=== PATIENT | male | born 1930 | race Caucasian/White ===

== ENCOUNTER 2018-11-07 17:47 | Emergency (ER) | payer MEDICARE ==
--- OUTSIDE RECORDS SUMMARY | 2018-11-07 17:58 | XMS REPORT | Continuity of Care Document ---
:1930 External Reference #:[id number] Author Name Hoang Hernandez M.D. Address [address] [facility] [address] [place] [address] Care Team Providers Name Role Phone HCP/LW on file Primary Care Physician Unavailable Payers Type Date Identification Numbers Payment Provider Subscriber Effective: Policy Number: [id number] [facility] Marie Morse 2005 PayID: [id number] [address] [place] [address] Effective: 2010 Policy Number: [facility] Marie Morse [id number] PayID: [id number] [address] [place] [address] Advance Directives Description No Information Available Problems Date Description Provider Status Onset: 11/11/2006 Carotid artery occlusion Hoang Hernandez M.D. Active Onset: 11/11/2006 Disorder of lipid metabolism Hoang Hernandez M.D. Active Onset: 11/11/2006 Tobacco user Hoang Hernandez M.D. Active Onset: 01/28/2010 Benign essential hypertension Hoang Hernandez M.D. Active Onset: 08/16/2011 Abdominal aortic aneurysm without Hoang Hernandez M.D. Active rupture Onset: 08/16/2012 Impaired fasting glycaemia Hoang Hernandez M.D. Active Onset: 2016 Gastroesophageal reflux disease Hoang Hernandez M.D. Active Onset: 10/07/2015 Disorder of fatty acid metabolism Hoang Hernandez M.D. Active Onset: 10/07/2015 Dysthymic disorder Hoang Hernandez M.D. Active Onset: 10/07/2015 Essential hypertension Hoang Hernandez M.D. Active Family History Date Family Member(s) Problem(s) Comments General Alcoholism brother General Diabetes, Type II 1 brother, now General father, 2 brothers and 1 sister of cancers, unsure of kind : (age 45 Mother due to Typhoid Years) Number of Children None Number of Siblings Siblings: 6 Social History Type Date Description Comments Sex Unknown Marital Status Patient is ( of pneumonia 07/22/14) Employment Not currently working. 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 Tobacco Use Start: Unknown Current Cigarette Smoker Had smoked 2ppd for almost 40yrs. Smoking 1/2-1 ppd as of 01/02. Used Chantix in the past w/o quitting success but did cut down a lot. Tried Wellbutrin '; didn't help and caused insomnia, antsyness. 09/22/17: discussed stopping smoking, pt declined 08/12/14: Pt stated he will quit when he runs out of his current cigarette supply 04/04/15: continues to smoke ETOH Use Drinks Alcohol Occasionally ~1 beer/wk. Tobacco Use Start: Unknown Patient is a current smoker, smokes every day Smoking Status Reviewed: 09/22/17 Patient is a current smoker, smokes every day Allergies, Adverse Reactions, Alerts Description No Known Drug Allergies Medications Medication Date Status Form Strength Qnty SIG Indications Ordering Provider Areds 2 Active 1 po twice Unknown 016 daily Paroxetine Active Tablets 20mg 90tabs take one F34.1 Silcoff, HCL 014 tablet by dinah Bolton once M.DWesley daily for mood Aspirin Active Tablets 81mg 1 PO qd For I65.29 Silcoff, 007 Heart Edwina Bolton M.D. Prevention R94.31 Simvastatin 12/11/2006 Active Tablets 40mg 90tabs take one tablet E71.30 Silcoff, by mouth once Nanda Bolton daily for high cholesterol Atenolol 11/11/2006 Active Tablets 25mg 90tabs take one tablet I65.29 Silcoff, by mouth once Nanda Bolton daily as directed for high blood pressure I10 Shingrix 04/10/ Hx Suspension Rec 50mcg 2unit administer 2 Z23 Silcoff, 2018 - s doses as Nanda Bolton 10/07/ directed, per 2019 cdc guidelines Azithromycin 07/15/ Hx Tablets 250mg 6tabs 2 by mouth on 786.2 David, 2013 - day then 1 by Nanda Bolton 07/20/ mouth daily for 2013 4 more days Oxycodone-Acetamino 07/14/ Hx Tablets 5-325 40tab 1-2 every 6-8 Unknown phen 2014 - mg s hours as needed 07/31/ severe pain 2013 code d Acetaminophen 07/14/ Hx Capsules 500mg prn Unknown 2013 - 2013 PT For Balance And 08/20/ Hx please evaluate 781.2 Alexandracoluther, Fall Prevention 2012 - and treatHoang M.D. 07/14/ instruct in 2013 hep, modalities prn Omeprazole 08/20/ Hx Capsules DR 20mg 30cap Take One K21.9 David, 2012 - Capsule By Nanda Bolton 08/09/ Mouth Once 2015 Daily For Acid Reflux Omeprazole 09/07/ Hx Capsules DR 40mg 30cap 1 po qd for 536.8 David, 2009 - acid reflux Nanda Bolton 2010 Paroxetine HCL 01/30/ Hx Tablets 20mg 30tab 1/2 po qd for 1 300.4 David 2008 - week then 1 po Nanda Bolton 01/28/ qd 2009 Bupropion HCL SR 01/21/ Hx Tablets ER 12HR 150mg 60tab 1 po qam x3 300.4 David, 2008 - s days then 1 po Nanda Bolton 01/30/ bid; take last 2008 dose of the day by mid afternoon; start about 2wks before your quit date 305.1 Chantix 05/22/2008 - Hx Tablets 1mg 60tabs 1 po bid, to 305.1 Silcoff, 07/16/2008 start when jin Bolton are done M.DWesley with the starter kit Chantix Starter 04/24/2008 - Hx Misc [id number] 0.5MG qd X3 D 305.1 Brien Hernandez 05/22/2008 Then 0.5MG Hoang, bid X4 Days M.D. Then 1MG bid; Start This Medication 1WK Before Your Quit Date Wellbutrin XL 10/03/2007 - Hx Tablets ER 150mg 42Sample 1 pill every 305.1 Silcoff, 04/24/2008 24HR morning for 3 drew Bolton then 2 M.D. pills every morning Chantix 05/02/2007 - Hx Tablets 1mg 60tabs 1 PO bid 305.1 Silcoff, 05/17/2007 Nanda Bolton Chantix Starter 03/31/2007 - Hx Misc [id number] 0.5mg qd x3 D 305.1 Silcoff , Kit 05/02/2007 then 0.5mg Hoang, bid x4 days M.D. then 1mg bid; start this medication 1wk before your quit date Simvastatin 11/11/2006 - Hx Tablets 20mg 90tabs 1 po qd to 272.8 Silcoff, 12/11/2006 lower gurvinder Bolton M.D. Multivitamins - Hx 1 by mouth Unknown 04/03/2015 every day Immunizations CPT Code Status Date Vaccine Reaction Lot # [id number] Given 07/13/2017 Influenza Vaccine Split Virus Preservative Free Im Use 65955 Given 06/04/2015 Influenza Vaccine Split Virus Preservative Free Im Use 47071 Given 08/12/2014 Adacel or Boostrix, TDaP [id number] 67948 Given 08/12/2014 Prevnar 13 [id number] 16232 Given 08/12/2014 Influenza Vaccine Split Virus [id number] Preservative Free Im Use 83255 Given 08/20/2013 Flu, Split Virus 3Yrs [id number] 00636 Given 08/16/2012 Flu, Split Virus 3Yrs [id number] 49013 Given 08/16/2011 Flu, Split Virus 3Yrs [id number] 28506 Given 07/29/2010 Flu, Split Virus 3Yrs [id number] 42587 Given 09/10/2009 Flu, Split Virus 3Yrs [id number] 29204 Given 07/16/2008 Flu, Split Virus 3Yrs [id number] 07362 Given 11/11/2006 Pneumococcal Immunization [id number] 24099 Given 09/26/2004 Td Immunization Yr known, per pt Vital Signs Date Vital Result Comment 10/11/2018 11:25am BP Systolic 142 mmHg BP Diastolic 78 mmHg BP Systolic Recheck 144 mmHg R arm sitting BP Diastolic Recheck 76 mmHg R arm sitting Weight 179.00 lb with shoes 04/10/2018 11:31am BP Systolic 128 mmHg BP Diastolic 68 mmHg BP Systolic Recheck 132 mmHg R arm sitting BP Diastolic Recheck 70 mmHg R arm sitting Height 66.50 inches 5'6.50" Weight 182.00 lb BMI (Body Mass Index) 28.9 kg/m2 10/10/2017 12:11pm BP Systolic 114 mmHg BP Diastolic 68 mmHg Weight 180.00 lb 09/22/2017 4:03pm BP Systolic 128 mmHg BP Diastolic 72 mmHg Weight 179.00 lb 04/08/2017 11:22am BP Systolic 150 mmHg BP Diastolic 80 mmHg Height 66.50 inches 5'6.50"w/sandals Weight 177.00 lb w/sandals BMI (Body Mass Index) 28.1 kg/m2 10/08/2016 11:23am BP Systolic 132 mmHg BP Diastolic 80 mmHg BP Systolic Recheck 148 mmHg R arm sitting BP Diastolic Recheck 84 mmHg R arm sitting Height 66 inches 5'6" Weight 183.00 lb BMI (Body Mass Index) 29.5 kg/m2 2016 1:03pm BP Systolic 142 mmHg BP Diastolic 78 mmHg Weight 183.00 lb with shoes 10/07/2015 8:49am BP Systolic 146 mmHg Lrg cuff BP Diastolic 76 mmHg Lrg cuff BP Systolic Recheck 150 mmHg R arm sitting BP Diastolic Recheck 84 mmHg R arm sitting Height 66 inches 5'6" w/shoes Weight 187.00 lb w/shoes BMI (Body Mass Index) 30.2 kg/m2 04/04/2015 10:32am BP Systolic 140 mmHg BP Diastolic 70 mmHg Height 66 inches 5'6" w/shoes Weight 177.00 lb w/shoes BMI (Body Mass Index) 28.6 kg/m2 12/10/2014 10:38am BP Systolic 130 mmHg BP Diastolic 80 mmHg BP Systolic Recheck 156 mmHg R arm; 140 by palp BP Diastolic Recheck 80 mmHg R arm; 140 by palp Heart Rate 64 /min reg Weight 173.00 lb w/shoes 08/12/2014 10:55am BP Systolic 140 mmHg BP Diastolic 80 mmHg Weight 165.00 lb 07/15/2014 9:12am BP Systolic 158 mmHg BP Diastolic 78 mmHg BP Systolic Recheck 146 mmHg R arm sitting BP Diastolic Recheck 80 mmHg R arm sitting Heart Rate 72 /min reg Respiratory Rate 16 /min not laboured Height 66 inches 5'6" shoes on Weight 168.00 lb shoes on BMI (Body Mass Index) 27.1 kg/m2 08/20/2013 10:25am BP Systolic 168 mmHg BP Diastolic 84 mmHg Height 66.5 inches 5'6.50" shoes on Weight 171.00 lb shoes on BMI (Body Mass Index) 27.2 kg/m2 02/13/2013 8:32am BP Systolic 138 mmHg BP Diastolic 86 mmHg BP Systolic Recheck 146 mmHg R arm sitting BP Diastolic Recheck 76 mmHg R arm sitting Heart Rate 64 /min reg Respiratory Rate 16 /min not laboured Height 66 inches 5'6" Weight 170.00 lb BMI (Body Mass Index) 27.4 kg/m2 08/16/2012 9:01am BP Systolic 120 mmHg BP Diastolic 78 mmHg Heart Rate 63 /min reg Height 66 inches 5'6" Weight 172.00 lb BMI (Body Mass Index) 27.8 kg/m2 Last Menstrual Period 0 02/14/2012 10:39am BP Systolic 136 mmHg BP Diastolic 78 mmHg BP Systolic Recheck 146 mmHg R arm sitting BP Diastolic Recheck 80 mmHg R arm sitting Height 66 inches 5'6" Weight 169.00 lb BMI (Body Mass Index) 27.3 kg/m2 10/05/2011 4:46pm BP Systolic 168 mmHg BP Diastolic 86 mmHg Body Temperature 97.8 F Weight 172.00 lb 08/16/2011 9:18am BP Systolic 128 mmHg BP Diastolic 80 mmHg Height 66 inches 5'6" Weight 172.00 lb BMI (Body Mass Index) 27.8 kg/m2 Last Menstrual Period 0 02/12/2011 1:56pm BP Systolic 114 mmHg BP Diastolic 70 mmHg Height 65.50 inches 5'5.50" Weight 173.00 lb BMI (Body Mass Index) 28.3 kg/m2 Last Menstrual Period 0 09/07/2010 4:25pm BP Systolic 150 mmHg BP Diastolic 82 mmHg Weight 172.00 lb Last Menstrual Period 0 07/29/2010 9:34am BP Systolic 110 mmHg BP Diastolic 70 mmHg Height 65.75 inches 5'5.75" Weight 170.00 lb BMI (Body Mass Index) 27.6 kg/m2 Last Menstrual Period 0 01/28/2010 9:35am BP Systolic 162 mmHg BP Diastolic 80 mmHg Weight 175.00 lb 07/30/2009 9:11am BP Systolic 122 mmHg BP Diastolic 82 mmHg Weight 165.00 lb 01/21/2009 9:57am BP Systolic 138 mmHg BP Diastolic 80 mmHg Height 66 inches 5'6" Weight 168.00 lb BMI (Body Mass Index) 27.1 kg/m2 Last Menstrual Period 0 07/16/2008 9:54am BP Systolic 116 mmHg BP Diastolic 78 mmHg Weight 168.00 lb BMI (Body Mass Index) 26.3 kg/m2 04/24/2008 10:19am BP Systolic 134 mmHg BP Diastolic 82 mmHg Height 67 inches 5'7" Weight 168.00 lb BMI (Body Mass Index) 26.3 kg/m2 Last Menstrual Period 0 10/03/2007 10:03am BP Systolic 122 mmHg BP Diastolic 70 mmHg BP Systolic Recheck 146 mmHg R arm sitting BP Diastolic Recheck 78 mmHg R arm sitting Heart Rate 60 /min reg Height 67 inches 5'7" Weight 176.00 lb BMI (Body Mass Index) 27.6 kg/m2 05/17/2007 9:24am BP Systolic 138 mmHg BP Diastolic 74 mmHg Height 67 inches 5'7" Weight 173.00 lb BMI (Body Mass Index) 27.1 kg/m2 03/31/2007 8:52am BP Systolic 156 mmHg BP Diastolic 64 mmHg Height 67 inches 5'7" Weight 170.00 lb BMI (Body Mass Index) 26.6 kg/m2 11/28/2006 8:38am BP Systolic 150 mmHg BP Diastolic 76 mmHg BP Systolic Recheck 146 mmHg R arm sitting BP Diastolic Recheck 76 mmHg R arm sitting Heart Rate 64 /min reg Height 67 inches 5'7" Weight 170.00 lb BMI (Body Mass Index) 26.6 kg/m2 11/11/2006 1:53pm BP Systolic 140 mmHg BP Diastolic 84 mmHg Heart Rate 80 /min reg Respiratory Rate 16 /min not laboured Height 67 inches 5'7" Weight 175.00 lb BMI (Body Mass Index) 27.4 kg/m2 Last Menstrual Period 0 Results Test Date Facility Test Result H/L Range Note Lipid Profile 10/04/2018 [facility] Triglycerides 126 mg/dL 1 (Trig/Chol/HDL) [phone] Cholesterol 140 mg/dL 2 HDL Cholesterol 33.6 mg/dL 3 LDL Cholesterol 81 mg/dL 4 Basic Metabolic Panel 10/04/2018 [facility] Sodium 139 mmol/L N 135- 145 [phone] Potassium 4.3 mmol/L N 3.5-5.0 Chloride 103 mmol/L N 101-111 Co2 Carbon Dioxide 29 mmol/L N 22-32 Anion Gap 7 mmol/L N 2-11 Glucose 100 mg/dL N 70-100 Blood Urea Nitrogen 17 mg/dL N 6-24 Creatinine 0.81 mg/dL N 0.67-1.17 BUN/Creatinine Ratio 21.0 High 8-20 Calcium 8.9 mg/dL N 8.6-10.3 Egfr Non- 89.9 >60 Egfr 108.8 >60 5 Laboratory test 10/04/2018 [facility] Alt 14 U/L N 7-52 6 finding [phone] Laboratory test 04/10/2018 In House Hemoglobin A1c 5.6 finding CBC Auto Diff 09/23/2017 [facility] White Blood Count 6.9 N 3.5-10.8 [phone] 10^3/uL Red Blood Count 4.70 10^6/uL N 4.0-5.4 Hemoglobin 14.5 g/dL N 14.0-18.0 Hematocrit 43 % N 42-52 Mean Corpuscular Volume 92 fL N 80-94 Mean Corpuscular Hemoglobin 31 pg N 27-31 Mean Corpuscular HGB Conc 34 g/dL N 31-36 Red Cell Distribution Width 13 % N 10.5-15 Platelet Count 169 10^3/uL N 150-450 Mean Platelet Volume 8 um3 N 7.4-10.4 Abs Neutrophils 4.2 10^3/uL N 1.5-7.7 Abs Lymphocytes 1.8 10^3/uL N 1.0-4.8 Abs Monocytes 0.7 10^3/uL N 0-0.8 Abs Eosinophils 0.1 10^3/uL N 0-0.6 Abs Basophils 0 10^3/uL N 0-0.2 Abs Nucleated RBC 0 10^3/uL Granulocyte % 61.5 % N 38-83 Lymphocyte % 26.3 % N 25-47 Monocyte % 9.8 % High 1-9 Eosinophil % 1.7 % N 0-6 Basophil % 0.7 % N 0-2 Nucleated Red Blood Cells % 0.1 Comp Metabolic Panel 09/23/2017 [facility] Sodium 139 mmol/L N 133- 145 [phone] Potassium 4.6 mmol/L N 3.5-5.0 Chloride 106 mmol/L N 101-111 Co2 Carbon Dioxide 29 mmol/L N 22-32 Anion Gap 4 mmol/L N 2-11 Glucose 82 mg/dL N 70-100 Blood Urea Nitrogen 25 mg/dL High 6-24 Creatinine 1.00 mg/dL N 0.67-1.17 BUN/Creatinine Ratio 25.0 High 8-20 Calcium 8.9 mg/dL N 8.6-10.3 Total Protein 7.1 g/dL N 6.4-8.9 Albumin 3.9 g/dL N 3.2-5.2 Globulin 3.2 g/dL N 2-4 Albumin/Globulin Ratio 1.2 N 1-3 Total Bilirubin 0.40 mg/dL N 0.2-1.0 Alkaline Phosphatase 87 U/L N 34-104 Alt 10 U/L N 7-52 Ast 14 U/L N 13-39 Egfr Non- 70.7 >60 Egfr 90.9 >60 7 Urinalysis Profile 09/23/2017 [facility] Urine Color Yellow [phone] Urine Appearance Clear Urine Specific [place] 1.023 N 1.010-1.030 Urine pH 5.0 N 5-9 Urine Urobilinogen Negative Negative Urine Ketones Negative Negative Urine Protein Negative Negative Urine Leukocytes Negative Negative Urine Blood Negative Negative * * Abnormal Negative 8 Urine Nitrite Negative Negative Urine Bilirubin Negative Negative Urine Glucose Negative Negative Ua Inhouse 09/22/2017 In House Ua Glucose - 9 Ua Bilirubin - Ua Ketones - Ua Specific [place] 1.025 Ua Blood - Ua PH 6.0 Ua Protein 30, 1+ Ua Urobilinogen - Ua Nitrite - Ua Leukocytes - Urine Micro Inhouse 04/08/2017 In House Ua WBC - Ua RBC - Ua Casts - Ua Epi - Ua Other - Ua Glucose - Ua Bilirubin - Ua Ketones - Ua Specific [place] 1.015 Ua Blood - Ua PH 6.0 Ua Protein tr Ua Urobilinogen - Ua Nitrite - Ua Leukocytes - Laboratory test finding 04/08/2017 In House Hemoglobin A1c 5.4 Lipid Profile 04/01/2017 [facility] Triglycerides 99 mg/dL N 10 (Trig/Chol/HDL) [phone] Cholesterol 129 mg/dL N 11 HDL Cholesterol 33.8 mg/dL N 12 LDL Cholesterol 75 mg/dL N 13 Laboratory test finding 04/01/2017 [facility] Alt 11 U/L N 7-52 14 [phone] Basic Metabolic Panel 04/01/2017 [facility] Sodium 138 mmol/L N 133- 145 [phone] Potassium 4.1 mmol/L N 3.5-5.0 Chloride 105 mmol/L N 101-111 Co2 Carbon Dioxide 26 mmol/L N 22-32 Anion Gap 7 mmol/L N 2-11 Glucose 101 mg/dL High 70-100 Blood Urea Nitrogen 17 mg/dL N 6-24 Creatinine 0.84 mg/dL N 0.67-1.17 BUN/Creatinine Ratio 20.2 High 8-20 Calcium 9.3 mg/dL N 8.6-10.3 Egfr Non- 86.6 N >60 Egfr 111.4 N >60 15 Laboratory test finding 2016 In House Hemoglobin A1c 5.8 Urine Micro Inhouse 2016 In House Ua WBC - 16 Ua RBC - Ua Casts - Ua Epi - Ua Other - Ua Glucose - Ua Bilirubin 1+ Ua Ketones - Ua Specific [place] 1.025 Ua Blood - Ua PH 6.0 Ua Protein 1+ Ua Urobilinogen - Ua Nitrite - Ua Leukocytes - Basic Metabolic Panel 03/30/2016 [facility] Sodium 138 mmol/L N 133- 145 [phone] Potassium 4.4 mmol/L N 3.5-5.0 Chloride 104 mmol/L N 101-111 Co2 Carbon Dioxide 27 mmol/L N 22-32 Anion Gap 7 mmol/L N 2-11 Glucose 100 mg/dL N 70-100 Blood Urea Nitrogen 19 mg/dL N 6-24 Creatinine 0.99 mg/dL N 0.67-1.17 BUN/Creatinine Ratio 19.2 N 8-20 Calcium 9.3 mg/dL N 8.6-10.3 Egfr Non- 71.8 N >60 Egfr 92.4 N >60 17 Laboratory test finding 03/30/2016 [facility] Alt (SGPT) 13 U/L N 7- 52 18 [phone] Lipid Profile 03/30/2016 [facility] Triglycerides 92 mg/dL N 19 (Trig/Chol/HDL) [phone] Cholesterol 137 mg/dL N 20 HDL Cholesterol 33.9 mg/dL N 21 LDL Cholesterol 85 mg/dL N 22 Laboratory test 04/04/2015 In House Hemoglobin A1c 5.7 finding Basic Metabolic 03/28/2015 [facility] Sodium 139 mmol/L N 133-145 23 Panel [phone] Potassium 4.3 mmol/L N 3.5-5.0 Chloride 106 mmol/L N 101-111 Co2 Carbon Dioxide 26 mmol/L N 22-32 Anion Gap 7 mmol/L N 2-11 Glucose 99 mg/dL N 70-100 Blood Urea Nitrogen 17 mg/dL N 6-24 Creatinine 0.96 mg/dL N 0.67-1.17 BUN/Creatinine Ratio 17.7 N 8-20 Calcium 8.8 mg/dL N 8.6-10.3 Egfr Non- 74.6 N >60 Egfr 96.0 N >60 24 Lipid Profile (Trig/Chol/HDL) 03/28/2015 [facility] Triglycerides 79 mg /dL N 25 [phone] Cholesterol 121 mg/dL N 26 HDL Cholesterol 32.0 mg/dL N 27 LDL Cholesterol 73 mg/dL N 28 Laboratory test finding 03/28/2015 [facility] Alt (SGPT) 11 U/L N 7- 52 29 [phone] Urine Micro Inhouse 08/12/2014 In House Ua WBC - Ua RBC - Ua Casts - Ua Epi - Ua Other - Ua Glucose - Ua Bilirubin mod Ua Ketones - Ua Specific [place] 1.020 Ua Blood - Ua PH 6.0 Ua Protein 1+ Ua Urobilinogen - Ua Nitrite - Ua Leukocytes - Type & Screen 02/18/2014 [facility] Patient Blood Type O Positive [phone] Antibody Screen NEGATIVE Comp Metabolic Panel 02/18/2014 [facility] Sodium 137 mmol/L 133- 145 [phone] Potassium 3.8 mmol/L 3.7-5.6 Chloride 106 mmol/L 101-111 Co2 Carbon Dioxide 25 mmol/L 22-32 Anion Gap 6 mmol/L 2-11 Glucose 100 mg/dL 70-100 Blood Urea Nitrogen 20 mg/dL 6-24 Creatinine 0.97 mg/dL 0.67-1.17 BUN/Creatinine Ratio 20.6 High 8-20 Calcium 9.0 mg/dL 8.6-10.3 Total Protein 7.3 g/dL 6.4-8.9 Albumin 4.0 g/dL 3.2-5.2 Globulin 3.3 g/dL 2-4 Albumin/Globulin Ratio 1.2 1-3 Total Bilirubin 0.40 mg/dL 0.2-1.0 Alkaline Phosphatase 87 U/L 34-104 Alt 10 U/L 7-52 Ast 18 U/L 13-39 Egfr Non- 73.9 >60 Egfr 95.1 >60 30 CBC Auto Diff 02/18/2014 [facility] White Blood Count 8.5 10^3/uL 4.8-10.8 [phone] Red Blood Count 5.00 10^6/uL 4.0-5.4 Hemoglobin 14.9 g/dL 14.0-18.0 Hematocrit 44 % 42-52 Mean Corpuscular Volume 88 fL 80-94 Mean Corpuscular Hemoglobin 30 pg 27-31 Mean Corpuscular HGB Conc 34 g/dL 31-36 Red Cell Distribution Width 14 % 10.5-15 Platelet Count 145 10^3/uL Low 150-450 Mean Platelet Volume 8 um3 7.4-10.4 Abs Neutrophils 6.1 10^3/uL 1.5-7.7 Abs Lymphocytes 1.6 10^3/uL 1.0-4.8 Abs Monocytes 0.6 10^3/uL 0-0.8 Abs Eosinophils 0.1 10^3/uL 0-0.6 Abs Basophils 0.1 10^3/uL 0-0.2 Abs Nucleated RBC 0.01 10^3/uL Granulocyte % 72.1 % 38-83 Lymphocyte % 18.9 % Low 25-47 Monocyte % 6.9 % 1-9 Eosinophil % 1.3 % 0-6 Basophil % 0.8 % 0-2 Nucleated Red Blood Cells % 0.1 Inr/Protime 02/18/2014 [facility] Inr 1.02 0.85-1.06 [phone] Laboratory test 02/18/2014 [facility] Activated 31.6 seconds 24.0- 36.1 finding [phone] Partial Thrombo Time Laboratory test 08/20/2013 In House Hemoglobin A1c 5.4 finding Urine Micro 08/20/2013 In House Ua WBC - Inhouse Ua RBC - Ua Casts - Ua Epi - Ua Other - Ua Glucose - Ua Bilirubin - Ua Ketones - Ua Specific [place] 1.005 Ua Blood - Ua PH 6.5 Ua Protein - Ua Urobilinogen - Ua Nitrite - Ua Leukocytes - Basic Metabolic Panel 08/10/2013 [facility] Sodium 138 mmol/L 133- 145 [phone] Potassium 4.1 mmol/L 3.5-5.0 Chloride 105 mmol/L 101-111 Co2 Carbon Dioxide 29.0 mmol/L 22-32 Anion Gap 4.0 mmol/L 2-11 Glucose 101 mg/dL High 70-100 Blood Urea Nitrogen 17 mg/dL 6-24 Creatinine 1.00 mg/dL 0.50-1.40 BUN/Creatinine Ratio 17.0 8-20 Calcium 9.0 mg/dL 8.1-9.9 Egfr Non- 71.4 >60 Egfr 91.8 >60 31 Laboratory test finding 08/10/2013 [facility] Alt 14 U/L 14-54 32 [phone] Lipid Profile 08/10/2013 [facility] Triglycerides 66 mg/dL 40-200 (Trig/Chol/HDL) [phone] Cholesterol 141 mg/dL Less than 200 HDL Cholesterol 36 mg/dL Low 40-60 33 Cholesterol/HDL Ratio 3.9 Average 1-4.44 LDL Cholesterol 91.8 Less Than 100 34 Urine Micro Inhouse 08/16/2012 In House Ua WBC 0-2 Ua RBC - Ua Casts - Ua Epi - Ua Other - Ua Glucose - Ua Bilirubin - Ua Ketones - Ua Specific [place] 1.030 Ua Blood - Ua PH 6.0 Ua Protein - Ua Urobilinogen - Ua Nitrite - Ua Leukocytes - Basic Metabolic Panel 08/07/2012 [facility] Sodium 137 mmol/L 133- 145 [phone] Potassium 4.7 mmol/L 3.5-5.0 Chloride 106 mmol/L 101-111 Co2 Carbon Dioxide 28.0 mmol/L 22-32 Anion Gap 3.0 mmol/L 2-11 Glucose 105 mg/dL High 70-100 Blood Urea Nitrogen 14 mg/dL 6-24 Creatinine 0.90 mg/dL 0.50-1.40 BUN/Creatinine Ratio 15.6 8-20 Calcium 9.0 mg/dL 8.1-9.9 Egfr Non- 80.8 >60 Egfr 103.9 >60 35 Lipid Profile 08/07/2012 [facility] Triglycerides 76 mg/dL 40-200 (Trig/Chol/HDL) [phone] Cholesterol 129 mg/dL Less than 200 HDL Cholesterol 32 mg/dL Low 40-60 36 Cholesterol/HDL Ratio 4.0 AVERAGE 1-4.44 LDL Cholesterol 81.8 mg/dL Less Than 100 37 Laboratory test 08/07/2012 [facility] Alt 13 U/L Low 14-54 finding [phone] Laboratory test 02/14/2012 In House Occult Blood - neg x3 finding Stool Urine Micro Inhouse 08/16/2011 In House Ua WBC 0-1 Ua RBC - Ua Casts - Ua Epi - Ua Other - Ua Glucose - Ua Bilirubin - Ua Ketones - Ua Specific [place] 1.020 Ua Blood - Ua PH 5.0 Ua Protein - Ua Urobilinogen - Ua Nitrite - Ua Leukocytes - Lipid Profile 08/10/2011 [facility] Triglyceride 61 mg/dL 40-200 (Trig/Chol/HDL) [phone] Cholesterol 130 mg/dL Less Than 200 38 High Density Lipoprotein 33 mg/dL Low 40-60 39 Cholesterol/HDL Ratio 3.94 AVERAGE 1-4.97 Low Density Lipoprotein 85 mg/dL Less Than 100 40 Laboratory test 08/10/2011 [facility] Alt (SGPT) 15 U/L Low 17-63 finding [phone] Laboratory test 02/12/2011 In House Occult Blood - neg x3 finding Stool Lipid Profile 07/13/2010 [facility] Triglyceride 88 mg/dL 40-200 (Trig/Chol/HDL) [phone] Cholesterol 133 mg/dL Less Than 200 41 High Density Lipoprotein 37 mg/dL Low 40-60 42 Cholesterol/HDL Ratio 3.59 AVERAGE 1-4.97 Low Density Lipoprotein 78 mg/dL Less Than 100 43 Laboratory test finding 07/13/2010 [facility] Alt (SGPT) 14 U/L Low 17-63 [phone] Lipid Profile 07/23/2009 [facility] Triglyceride 58 mg/dL 40-200 44 (Trig/Chol/HDL) [phone] Cholesterol 130 mg/dL Less Than 200 45 High Density Lipoprotein 34 mg/dL Low 40-60 46 Cholesterol/HDL Ratio 3.82 AVERAGE 1-4.97 Low Density Lipoprotein 84 mg/dL Less Than 100 47 Laboratory test finding 07/23/2009 [facility] Alt (SGPT) 14 U/L Low 17-63 [phone] Basic Metabolic Panel 07/23/2009 [facility] Sodium 141 mmol/L 135- 145 [phone] Potassium 4.3 mmol/L 3.5-5.0 Chloride 110 mmol/L 101-111 Co2 (Carbon Dioxide) 28.0 mmol/L 22-32 Anion Gap 3.0 mmol/L 2-11 48 Glucose 92 mg/dL 70-100 49 BUN 16 mg/dL 6-24 Creatinine 0.80 mg/dL 0.50-1.40 One Over Creatinine 1.20 BUN/Creatinine Ratio 20.0 8-20 Calcium 8.7 mg/dL 8.1-9.9 50 eGFR Non- 99.1 > 60 eGFR 119.9 > 60 51 Laboratory test 01/21/2009 In House Occult Blood - Stool neg x3 finding Lipid Profile 01/07/2009 [facility] Triglyceride 59 mg/dL 40-200 (Trig/Chol/HDL) [phone] Cholesterol 134 mg/dL Less Than 200 52 High Density Lipoprotein 35 mg/dL Low 40-60 53 Cholesterol/HDL Ratio 3.83 AVERAGE 1-4.97 Low Density Lipoprotein 87 mg/dL Less Than 100 54 Laboratory test finding 01/07/2009 [facility] Alt (SGPT) 14 U/L Low 17-63 [phone] Lipid Profile 03/15/2008 [facility] Triglyceride 77 mg/dL 40-200 (Trig/Chol/HDL) [phone] Cholesterol 142 mg/dL Less Than 200 55 High Density Lipoprotein 32 mg/dL Low 40-60 56 Cholesterol/HDL Ratio 4.44 AVERAGE 1-4.97 Low Density Lipoprotein 95 mg/dL Less Than 100 57 Laboratory test 03/15/2008 [facility] Alt (SGPT) 14 U/L Low 17-63 finding [phone] Lipid Profile 03/23/2007 [facility] Cholesterol/HD 4.10 AVERAGE 1- 4.97 (Trig/Chol/HDL) [phone] L Ratio Cholesterol 127 mg/dL Less Than 200 58 Triglyceride 67 mg/dL 40-200 High Density Lipoprotein 31 mg/dL Low 40-60 59 Low Density Lipoprotein 83 mg/dL Less Than 100 60 Laboratory test 03/23/2007 [facility] Alt (SGPT) 16 U/L Low 17-63 finding [phone] Laboratory test 12/09/2006 In House Occult Blood - NEG finding Stool Lipid Profile 12/06/2006 [facility] Cholesterol/HD 4.69 AVERAGE 1- 4.97 (Trig/Chol/HDL) [phone] L Ratio Cholesterol 150 mg/dL Less Than 200 61 Triglyceride 68 mg/dL 40-200 High Density Lipoprotein 32 mg/dL Low 40-60 62 Low Density Lipoprotein 104 mg/dL High Less Than 100 63 Laboratory test 12/06/2006 [facility] Alt (SGPT) 11 U/L Low 17-63 finding [phone] CBC With Electronic 11/14/2006 [facility] White Blood 8.1 CUMM 4.8- 10.8 Diff Stat [phone] Count Abs Basophils 0 0-0.2 Abs Eosinophils 0 0-0.6 Absolute Neutrophil Count 6.1 1.5-7.7 Abs Lymphs 1.5 1.0-4.8 Abs Mononuclear 0.5 0-0.8 Basophil % 0.3 % 0-2 Hematocrit 42 % 42-52 64 Hemoglobin 14.4 g/dL 14.0-18.0 Eosinophil % 0.3 % 0-6 Gran % 74.6 % 38-83 Lymph % 18.7 % Low 20-45 Mean Corpuscular HGB Cone 35 g/dL 32-36 Mean Corpuscular Hemoglob 30 pg 27-31 Mean Corpuscular Volume 88 um3 80-94 Mean Platelet Volume 7.7 um3 7.4-10.4 Mononuclear % 6.1 % 1-9 Platelet Count 203 CUMM 150-450 Red Cell Count 4.74 CUMM 4.6-6.2 Redcell Distribution WDTH 13 % 10.5-15 Protime W/Inr 11/14/2006 [facility] Inr 1.09 65 [phone] Protime 12.5 10.9-13.1 Alcohol Stat 11/14/2006 [facility] Alcohol < 10.0 mg/dL None Detected 66 [phone] Type And 11/14/2006 [facility] Patient Blood O POSITIVE Screen Urgent [phone] Type Antibody Screen NEGATIVE Laboratory test 11/14/2006 [facility] Troponin-I (TnI) 0.02 NG/ML 0- 0.06 67 finding [phone] CK For CKMB 68 U/L 0-200 68 Protime W/Inr 11/14/2006 [facility] Inr 1.09 69 [phone] Protime 12.5 10.9-13.1 Alcohol Stat 11/14/2006 [facility] Alcohol < 10.0 None Detected 70 [phone] mg/dL Laboratory test 11/14/2006 [facility] Troponin-I 0.02 NG/ML 0-0.06 71 finding [phone] (TnI) CK For CKMB 68 U/L 0-200 72 Code Santizo PTT (Aptt) 20.8 20.4-29.5 73 Code Chopra CMP 11/14/2006 [facility] One Over Creatinine 1.00 [phone] Anion Gap 6.0 mmol/L 2-11 74 Albumin/Globulin Ratio 1.2 1-3 Albumin 4.1 GM/DL 3.2-5.2 Alkaline Phosphatase 73 U/L 39-117 Alt (SGPT) 16 U/L Low 17-63 Ast (Sgot) 21 U/L 12-42 BUN 19 mg/dL 6-24 Calcium 8.7 mg/dL 8.7-10.2 Chloride 105 mmol/L 101-111 Co2 (Carbon Dioxide) 25.0 mmol/L 22-32 Globulin 3.4 GM/DL 2-4 Glucose 105 mg/dL 70-105 Potassium 4.3 mmol/L 3.5-5.0 Sodium 136 mmol/L 135-145 Bilirubin Total 1.0 mg/dL 0.4-1.5 Total Protein 7.5 GM/DL 6.2-8.1 BUN/Creatinine Ratio 19.0 8-20 Creatinine 1.0 mg/dL 0.5-1.4 Surgical 11/14/2006 [facility] Surgical <SEE 75 Pathology [phone] Pathology NOTE> CBC With 10/06/2006 [facility] White Blood 6.8 CUMM 4.8-1 Manual Diff [phone] Count 0.8 Absolute Neutrophil Count 4.0 Atypical Lymph 2 % 0-6 Basophil 2 % 0-2 Hematocrit 46 % 42-52 Hemoglobin 15.8 g/dL 14.0-18.0 Eosenophil 2 % 0-6 Lymphocyte 29 % 5-47 Mean Corpuscular HGB Cone 34 g/dL 32-36 Mean Corpuscular Hemoglob 31 pg 27-31 Mean Corpuscular Volume 90 um3 80-94 Monocyte 5 % 0-13 Mean Platelet Volume 7.6 um3 7.4-10.4 Platelet Count 180 CUMM 150-450 Platelet Evaluation GIANT 76 Polysegmented Neutrophil 60 % 38-83 Red Cell Count 5.17 CUMM 4.6-6.2 Redcell Distribution WDTH 13 % 10.5-15 Comp Metabolic Panel 10/06/2006 [facility] One Over Creatinine 0.90 [phone] Anion Gap 3.0 mmol/L 2-11 77 Albumin/Globulin Ratio 1.2 1-3 Albumin 4.1 GM/DL 3.2-5.2 Alkaline Phosphatase 84 U/L 39-117 Alt (SGPT) 13 U/L Low 17-63 Ast (Sgot) 18 U/L 12-42 BUN 18 mg/dL 6-24 Calcium 9.0 mg/dL 8.7-10.2 Chloride 109 mmol/L 101-111 Co2 (Carbon Dioxide) 29.0 mmol/L 22-32 Globulin 3.4 GM/DL 2-4 Glucose 102 mg/dL 70-105 Potassium 4.7 mmol/L 3.5-5.0 Sodium 141 mmol/L 135-145 Bilirubin Total 0.7 mg/dL 0.4-1.5 Total Protein 7.5 GM/DL 6.2-8.1 BUN/Creatinine Ratio 16.4 8-20 Creatinine 1.1 mg/dL 0.5-1.4 Lipid Profile 10/06/2006 [facility] Cholesterol/HDL 6.00 High 1-4.97 (Trig/Chol/HDL) [phone] Ratio AVERAGE Cholesterol 198 mg/dL Less Than 200 78 Triglyceride 64 mg/dL 40-200 High Density Lipoprotein 33 mg/dL Low 40-60 79 Low Density Lipoprotein 152 mg/dL High Less Than 100 80 1 Desirable: <150 Borderline High: 150-199 High: 200-499 Very High: >500 2 Desirable: <200 Borderline High: 200-239 High: >239 3 Low: <40 Desirable: 40-60 High: >60 4 Desirable: <100 Near Optimal: 100-129 Borderline High: 130-159 High: 160-189 Very High: >189 5 Because ethnic data is not always readily available, this report includes an eGFR for both -Americans and non- Americans. The National Kidney Disease Education Program (NKDEP) does not endorse the use of the MDRD equation for patients that are not between the ages of 18 and 70, are , have extremes of body size, muscle mass, or nutritional status, or are non- or non-. According to the National Kidney Foundation, irrespective of diagnosis, the stage of the disease is based on the level of kidney function: Stage Description GFR(mL/min/1.73 m(2)) 1 Kidney damage with normal or decreased GFR 90 2 Kidney damage with mild decrease in GFR 60-89 3 Moderate decrease in GFR 30-59 4 Severe decrease in GFR 15-29 5 Kidney failure <15 (or dialysis) 6 FASTING 12 HOUR 7 Because ethnic data is not always readily available, this report includes an eGFR for both -Americans and non- Americans. The National Kidney Disease Education Program (NKDEP) does not endorse the use of the MDRD equation for patients that are not between the ages of 18 and 70, are , have extremes of body size, muscle mass, or nutritional status, or are non- or non-. According to the National Kidney Foundation, irrespective of diagnosis, the stage of the disease is based on the level of kidney function: Stage Description GFR(mL/min/1.73 m(2)) 1 Kidney damage with normal or decreased GFR 90 2 Kidney damage with mild decrease in GFR 60-89 3 Moderate decrease in GFR 30-59 4 Severe decrease in GFR 15-29 5 Kidney failure <15 (or dialysis) 8 *Ascorbic acid is present which may interfere with detection of blood. 9 void, clear, yellow 10 Desirable <150 Borderline high 150-199 High 200-499 Very High >500 11 Desirable <200 Borderline high 200-239 High >239 12 Low <40 Desirable: 40-60 High: >60 13 Desirable: <100 mg/dL Near Optimal: 100-129 mg/dL Borderline High: 130-159 mg/dL High: 160-189 mg/dL Very High: >189 mg/dL 14 FASTING 12 HOUR 15 Because ethnic data is not always readily available, this report includes an eGFR for both -Americans and non- Americans. The National Kidney Disease Education Program (NKDEP) does not endorse the use of the MDRD equation for patients that are not between the ages of 18 and 70, are , have extremes of body size, muscle mass, or nutritional status, or are non- or non-. According to the National Kidney Foundation, irrespective of diagnosis, the stage of the disease is based on the level of kidney function: Stage Description GFR(mL/min/1.73 m(2)) 1 Kidney damage with normal or decreased GFR 90 2 Kidney damage with mild decrease in GFR 60-89 3 Moderate decrease in GFR 30-59 4 Severe decrease in GFR 15-29 5 Kidney failure <15 (or dialysis) 16 void, clear, dark yellow 17 Because ethnic data is not always readily available, this report includes an eGFR for both -Americans and non- Americans. The National Kidney Disease Education Program (NKDEP) does not endorse the use of the MDRD equation for patients that are not between the ages of 18 and 70, are , have extremes of body size, muscle mass, or nutritional status, or are non- or non-. According to the National Kidney Foundation, irrespective of diagnosis, the stage of the disease is based on the level of kidney function: Stage Description GFR(mL/min/1.73 m(2)) 1 Kidney damage with normal or decreased GFR 90 2 Kidney damage with mild decrease in GFR 60-89 3 Moderate decrease in GFR 30-59 4 Severe decrease in GFR 15-29 5 Kidney failure <15 (or dialysis) 18 FASTING 12 HOUR 19 Desirable <150 Borderline high 150-199 High 200-499 Very High >500 20 Desirable <200 Borderline high 200-239 High >239 21 Low <40 Desirable: 40-60 High: >60 22 Desirable: <100 mg/dL Near Optimal: 100-129 mg/dL Borderline High: 130-159 mg/dL High: 160-189 mg/dL Very High: >189 mg/dL 23 PT IS FASTING 24 Because ethnic data is not always readily available, this report includes an eGFR for both -Americans and non- Americans. The National Kidney Disease Education Program (NKDEP) does not endorse the use of the MDRD equation for patients that are not between the ages of 18 and 70, are , have extremes of body size, muscle mass, or nutritional status, or are non- or non-. According to the National Kidney Foundation, irrespective of diagnosis, the stage of the disease is based on the level of kidney function: Stage Description GFR(mL/min/1.73 m(2)) 1 Kidney damage with normal or decreased GFR 90 2 Kidney damage with mild decrease in GFR 60-89 3 Moderate decrease in GFR 30-59 4 Severe decrease in GFR 15-29 5 Kidney failure <15 (or dialysis) 25 Desirable <150 Borderline high 150-199 High 200-499 Very High >500 26 Desirable <200 Borderline high 200-239 High >239 27 Low <40 Desirable: 40-60 High: >60 28 Desirable: <100 mg/dL Near Optimal: 100-129 mg/dL Borderline High: 130-159 mg/dL High: 160-189 mg/dL Very High: >189 mg/dL 29 PT IS FASTING 30 Because ethnic data is not always readily available, this report includes an eGFR for both -Americans and non- Americans. The National Kidney Disease Education Program (NKDEP) does not endorse the use of the MDRD equation for patients that are not between the ages of 18 and 70, are , have extremes of body size, muscle mass, or nutritional status, or are non- or non-. According to the National Kidney Foundation, irrespective of diagnosis, the stage of the disease is based on the level of kidney function: Stage Description GFR(mL/min/1.73 m(2)) 1 Kidney damage with normal or decreased GFR 90 2 Kidney damage with mild decrease in GFR 60-89 3 Moderate decrease in GFR 30-59 4 Severe decrease in GFR 15-29 5 Kidney failure <15 (or dialysis) 31 Because ethnic data is not always readily available, this report includes an eGFR for both -Americans and non- Americans. The National Kidney Disease Education Program (NKDEP) does not endorse the use of the MDRD equation for patients that are not between the ages of 18 and 70, are , have extremes of body size, muscle mass, or nutritional status, or are non- or non-. According to the National Kidney Foundation, irrespective of diagnosis, the stage of the disease is based on the level of kidney function: Stage Description GFR(mL/min/1.73 m(2)) 1 Kidney damage with normal or decreased GFR 90 2 Kidney damage with mild decrease in GFR 60-89 3 Moderate decrease in GFR 30-59 4 Severe decrease in GFR 15-29 5 Kidney failure <15 (or dialysis) 32 FASTING 12 HOUR 33 HDL Interpretation: Undesirable: High Risk: Less than 40 mg/dL Desirable: Low Risk: Greater than 60 mg/dL 34 LDL Interpretation: Low Risk Optimal Level: LDL Less than 100 mg/dL Near or Above Optimal: LDL 100-129 mg/dL Borderline High Risk: LDL 130-159 mg/dL High Risk: LDL 160-189 mg/dL Very High Risk: LDL Greater than 189 mg/dL 35 Because ethnic data is not always readily available, this report includes an eGFR for both -Americans and non- Americans. The National Kidney Disease Education Program (NKDEP) does not endorse the use of the MDRD equation for patients that are not between the ages of 18 and 70, are , have extremes of body size, muscle mass, or nutritional status, or are non- or non-. According to the National Kidney Foundation, irrespective of diagnosis, the stage of the disease is based on the level of kidney function: Stage Description GFR(mL/min/1.73 m(2)) 1 Kidney damage with normal or decreased GFR 90 2 Kidney damage with mild decrease in GFR 60-89 3 Moderate decrease in GFR 30-59 4 Severe decrease in GFR 15-29 5 Kidney failure <15 (or dialysis) 36 HDL Interpretation: Undesirable: High Risk: Less than 40 MG/DL Desirable: Low Risk: Greater than 60 MG/DL 37 LDL Interpretation: Low Risk Optimal Level: LDL Less than 100 MG/DL Near or Above Optimal: LDL 100-129 MG/DL Borderline High Risk: LDL 130-159 MG/DL High Risk: LDL 160-189 MG/DL Very High Risk: LDL Greater than 189 MG/DL 38 CHOLESTEROL INTERPRETATION: Desirable: Less than 200 MG/DL Borderline-High Risk: 200-239 MG/DL High-Risk: 240 MG/DL and over 39 HDL INTERPRETATION: Undesirable: High Risk: Less than 40 MG/DL Desirable: Low Risk: Greater than 60 MG/DL 40 LDL INTERPRETATION: Low Risk Optimal Level: LDL Less than 100 MG/DL Near or Above Optimal: LDL 100-129 MG/DL Borderline High Risk: LDL 130-159 MG/DL High Risk: LDL 160-189 MG/DL Very High Risk: LDL Greater than 189 MG/DL 41 CHOLESTEROL INTERPRETATION: Desirable: Less than 200 MG/DL Borderline-High Risk: 200-239 MG/DL High-Risk: 240 MG/DL and over 42 HDL INTERPRETATION: Undesirable: High Risk: Less than 40 MG/DL Desirable: Low Risk: Greater than 60 MG/DL 43 LDL INTERPRETATION: Low Risk Optimal Level: LDL Less than 100 MG/DL Near or Above Optimal: LDL 100-129 MG/DL Borderline High Risk: LDL 130-159 MG/DL High Risk: LDL 160-189 MG/DL Very High Risk: LDL Greater than 189 MG/DL 44 FASTING 45 CHOLESTEROL INTERPRETATION: Desirable: Less than 200 MG/DL Borderline-High Risk: 200-239 MG/DL High-Risk: 240 MG/DL and over 46 HDL INTERPRETATION: Undesirable: High Risk: Less than 40 MG/DL Desirable: Low Risk: Greater than 60 MG/DL 47 LDL INTERPRETATION: Low Risk Optimal Level: LDL Less than 100 MG/DL Near or Above Optimal: LDL 100-129 MG/DL Borderline High Risk: LDL 130-159 MG/DL High Risk: LDL 160-189 MG/DL Very High Risk: LDL Greater than 189 MG/DL 48 Anion gap measurement may be of limited value in the presence of any alkalosis, especially in a combined acid base disorder. . 49 Note change in reference range as of 05/16/08. The change was based on recommendations from the [employer]. 50 Please note change in reference range effective 08 . 51 Because ethnic data is not always readily available, this report includes an eGFR for both -Americans and non- Americans. The National Kidney Disease Education Program (NKDEP) does not endorse the use of the MDRD equation for patients that are not between the ages of 18 and 70, are , have extremes of body size, muscle mass, or nutritional status, or are non- or non-. According to the National Kidney Foundation, irrespective of diagnosis, the stage of the disease is based on the level of kidney function: Stage Description GFR(mL/min/1.73 m(2)) 1 Kidney damage with normal or decreased GFR 90 2 Kidney damage with mild decrease in GFR 60-89 3 Moderate decrease in GFR 30-59 4 Severe decrease in GFR 15-29 5 Kidney failure <15 (or dialysis) 52 CHOLESTEROL INTERPRETATION: Desirable: Less than 200 MG/DL Borderline-High Risk: 200-239 MG/DL High-Risk: 240 MG/DL and over 53 HDL INTERPRETATION: Undesirable: High Risk: Less than 40 MG/DL Desirable: Low Risk: Greater than 60 MG/DL 54 LDL INTERPRETATION: Low Risk Optimal Level: LDL Less than 100 MG/DL Near or Above Optimal: LDL 100-129 MG/DL Borderline High Risk: LDL 130-159 MG/DL High Risk: LDL 160-189 MG/DL Very High Risk: LDL Greater than 189 MG/DL 55 CHOLESTEROL INTERPRETATION: Desirable: Less than 200 MG/DL Borderline-High Risk: 200-239 MG/DL High-Risk: 240 MG/DL and over 56 HDL INTERPRETATION: Undesirable: High Risk: Less than 40 MG/DL Desirable: Low Risk: Greater than 60 MG/DL 57 LDL INTERPRETATION: Low Risk Optimal Level: LDL Less than 100 MG/DL Near or Above Optimal: LDL 100-129 MG/DL Borderline High Risk: LDL 130-159 MG/DL High Risk: LDL 160-189 MG/DL Very High Risk: LDL Greater than 189 MG/DL 58 Classification: Desirable . 59 Classification: Low . 60 CALCULATED LDL APPROXIMATES THE VALUE OF A DIRECT LDL MEASUREMENT. Classification: Optimal Level . 61 Classification: Desirable . 62 Classification: Low . 63 CALCULATED LDL APPROXIMATES THE VALUE OF A DIRECT LDL MEASUREMENT. Classification: Near or above optimal . 64 Lymphopenia % 65 JOSEPH VALUE=2.00 ( OF 07/12/06) Recommended INR for Patients on Oral Anticoagulants Prophylaxis 2.0 - 3.0 Treatment of thrombosis 2.0 - 3.0 Prevention of embolism 2.0 - 3.0 Prevention of embolism from prosthetic heart valves 2.5 - 3.5 66 The detection limit for ETHANOL is 10.0 mg/dl . Values less than 10.0 mg/dl cannot be accurately measured. . 67 New Reference Range and Interpretation effective 06/29/02 TnI (ng/ml) INTERPRETATION <0.06 ng/ml NOT SUPPORTIVE OF DIAGNOSIS OF [place] 0.06 - 0.50 ng/ml INDETERMINATE: SUGGEST SERIAL STUDIES IF CLINICALLY INDICATED. > 0.5 ng/ml CONSISTENT WITH DIAGNOSIS OF [place] . 68 TOTAL CK LESS THAN 150 U/L. CK-MB WILL NOT BE RUN WITHOUT SPECIAL REQUEST TO CHEMISTRY DEPARTMENT. 69 JOSEPH VALUE=2.00 ( OF 07/12/06) Recommended INR for Patients on Oral Anticoagulants Prophylaxis 2.0 - 3.0 Treatment of thrombosis 2.0 - 3.0 Prevention of embolism 2.0 - 3.0 Prevention of embolism from prosthetic heart valves 2.5 - 3.5 70 The detection limit for ETHANOL is 10.0 mg/dl . Values less than 10.0 mg/dl cannot be accurately measured. . 71 New Reference Range and Interpretation effective 06/29/02 TnI (ng/ml) INTERPRETATION <0.06 ng/ml NOT SUPPORTIVE OF DIAGNOSIS OF [place] 0.06 - 0.50 ng/ml INDETERMINATE: SUGGEST SERIAL STUDIES IF CLINICALLY INDICATED. > 0.5 ng/ml CONSISTENT WITH DIAGNOSIS OF [place] . 72 TOTAL CK LESS THAN 150 U/L. CK-MB WILL NOT BE RUN WITHOUT SPECIAL REQUEST TO CHEMISTRY DEPARTMENT. 73 HEMOLYZED SPECIMEN,INTERPRET RESULTS WITH CAUTION,SUGGEST RECOLLECT TO VERIFY. PLEASE NOTE NEW REFERENCE RANGE EFFECTIVE 05 74 Anion gap measurement may be of limited value in the presence of any alkalosis, especially in a combined acid base disorder. . 75 ---- RUN DATE: 11/17/06 [facility] NMI LIVE PAGE 1 RUN TIME: 1437 Specimen Inquiry RUN USER: INTERFACE [id number] MARIE MORSE 76/M <DIS IN 11/16> ([id number]) [id number] [facility] -- Specimen: [id number] SOUT Spec Date: 11/14/[address]: Bill stack DO Spec Type: SURGICAL P Received: 11/16/06 Copies to: Hoang Hernandez MD SPECIMEN LEFT CAROTID PLAQUE HISTORY PRE-OP DIAGNOSIS: Left carotid stenosis GROSS DESCRIPTION The specimen is received in formalin labelled Marie Morse Left Carotid Plaque and consists of a carotid endarterectomy specimen measuring 3.7 x 1.5 x 1.0 cm. with a bifurcation at the mid point of the specimen. The vessel wall measures up to 0.2 cm. in maximal thickness and demonstrates hemorrhagic calcific atherosclerotic plaque. Director Sales Support section, one cassette. DIAGNOSIS Carotid artery, left, endarterectomy - Calcific atherosclerosis. Signed Electronically by: LIZETH DENNIS MD 11/17/06 -- -- DEPARTMENT OF PATHOLOGY, [address] [place] [address] [facility] Permit #[id number] Bill Nielson II, M.D. Director Nanda Moulton irector -- 76 RARE 77 Anion gap measurement may be of limited value in the presence of any alkalosis, especially in a combined acid base disorder. . 78 Classification: Desirable . 79 Classification: Low . 80 CALCULATED LDL APPROXIMATES THE VALUE OF A DIRECT LDL MEASUREMENT. Classification: Borderline High . Procedures Date Code Description Status 04/10/2018 77017 Electrocardiogram Complete Completed 04/08/2017 17065 Electrocardiogram Complete Completed 2016 99307 Electrocardiogram Complete Completed 04/04/2015 75955 Electrocardiogram Complete Completed 08/20/2013 62192 Electrocardiogram Complete Completed 08/16/2012 19316 Electrocardiogram Complete Completed 08/16/2011 03004 Electrocardiogram Complete Completed 01/28/2010 09857 Electrocardiogram Complete Completed 11/11/2006 95044 Electrocardiogram Complete Completed Encounters Type Date Location Provider Dx Diagnosis Office Visit 04/10/2018 Main Office Hoang Hernandez, I10 Essential ( primary) 11:30a M.D. 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 from slip/trip w strike agnst unsp obj, init I65.29 Occlusion and stenosis of unspecified carotid artery R26.81 Unsteadiness on feet R80.8 Other proteinuria R29.6 Repeated falls Office Visit 04/08/2017 11:00a Main Office Hoang Hernandez, R73.01 Impaired fasting M.D. 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 hypertension R73.01 Impaired fasting glucose I71.4 Abdominal aortic aneurysm, without rupture I65.29 Occlusion and stenosis of unspecified carotid artery K21.9 Gastro-esophageal reflux disease without esophagitis Office Visit 10/07/2015 8:45a Main Office Hoang Hernandez, I10 Essential (primary) M.D. 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 V15.88 History Of Fall 781.2 Gait Abnormality 305.1 Tobacco Use Disorder 300.4 Dysthymic Disorder V65.49 Counseling Other Spec V06.1 Zhjirgttdi-Ljubmbb-Sfotneha Combined (DTaP) V04.81 Need For Prophylactic Vaccination & Inoculation/Influenza V07.2 Prophylactic Immunotherapy Office Visit 07/15/2014 8:55a Main Office Hoang Hernandez, 401.1 Hypertension Benign M.D. 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 Disorders Other 536.8 Stomach Dyspepsia & Other Spec Disorders Of Function V76.51 Special Screening For Malignant Neoplasms Colon Office Visit 09/07/2010 4:30p Main Office Hoang Hernandez, 528.9 Oral Soft Tissue M.D. 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 Your most recent blood pressure reading in our office was high. Some people have high blood pressure in doctor's offices but not in other settings. In an effort to improve our understanding of your blood pressure and help to decide if (further) treatment is needed, please check your blood pressure at home or one of your local pharmacies in the next week then get back in touch with us via phone ([phone]) or our portal to let us know what your reading was.R73.01 Impaired fasting jedyqldP92.30 Disorder of fatty-acid metabolism, [id number] Unsteadiness on feetZ23 Encounter for immunizationComments:Encouraged flu vaccine wc was accepted. VIS provided.
--- NOTE | 2018-11-07 19:32 | UC ---
Minor Trauma HPI - HPI Summary HPI Summary: The patient is an 88-year-old male who lives alone who was brought in by concerned family members. Nephew is currently visiting him from [place]. Apparently he fell yesterday and had trouble getting up. He normally ambulates with a walker. His [id number] states his memory seems to be worse. She also states that he has always had some problems with his gait but it seems to be worsening. He also seems to be weaker than normal. Recently he has had incontinence of urine as well as urinary frequency. He has had no dysuria. He has had no fever. He hasn't appointment with to see his primary care physician tomorrow afternoon. In the past 3 days he has had 2 falls. He denies any headache or loss of consciousness. He denies any chest pain or shortness of breath. He states that he is currently not hurting anywhere. - History of Current Complaint Chief Complaint: UCGU Stated Complaint: UTI Time Seen by Provider: 11/07/18 19:20 Hx Obtained From: Patient, Family/Headlight Assembler Onset/Duration: Sudden Onset Onset Of Pain: Immediate Severity Currently: None Pain Intensity: 0 Pain Scale Used: 0-10 Numeric Mechanism Of Injury: Fall From A Standing Position - x2 Aggravating Factor(s): Nothing Alleviating Factor(s): Nothing Associated Signs And Symptoms: Negative: Loss Of Consciousness, Ecchymosis Related History: Negative: Diagnosed As, Occupational Injury, Anticoagulants - Allergies/Home Medications Allergies/Adverse Reactions: Allergies Allergy/AdvReac Type Severity Reaction Status Date / Time No Known Allergies Allergy Verified 11/07/18 18:12 Home Medications: Home Medications PARoxetine HCL TAB* [Paxil TAB*] 20 mg PO DAILY 11/07/18 [History Confirmed 09/13] PMH/Surg Hx/FS Hx/Imm Hx Cardiovascular History: Hypertension Neurological History: Other Other Neurological History: senile dementia - Surgical History Surgical History: Yes Surgery Procedure, Year, and Place: ENDARECTOMY 5YRS AGO [place] [facility] [place] - Family History Known Family History: Positive: Hypertension - Social History Alcohol Use: None Substance Use Type: None Smoking Status (MU): Light Every Day Tobacco Smoker Type: Cigarettes Amount Used/How Often: 1 PPD Length of Time of Smoking/Using Tobacco: 40 YEARS Have You Smoked in the Last Year: Yes - Immunization History Most Recent Influenza Vaccination: UNKNOWN Most Recent Tetanus Shot: 1 yr ago Most Recent Pneumonia Vaccination: Oct per Dr. Adams's office. Review of Systems All Other Systems Reviewed And Are Negative: Yes Constitutional: Positive: Negative Skin: Positive: Negative Eyes: Positive: Negative ENT: Positive: Negative Respiratory: Positive: Negative Cardiovascular: Positive: Negative Gastrointestinal: Positive: Negative Genitourinary: Positive: Frequency, Urgency Motor: Positive: Negative Neurovascular: Positive: Negative Musculoskeletal: Positive: Negative Neurological: Positive: Negative Psychological: Positive: Negative Physical Exam Triage Information Reviewed: Yes Appearance: Well-Appearing, No Pain Distress, Well-Nourished, Other: - alert and talkative Vital Signs: Initial Vital Signs Temp 98.5 F 11/07/18 18:09 Pulse 61 11/07/18 18:09 Resp 18 11/07/18 18:09 BP 140/114 11/07/18 18:09 Pulse Ox 100 11/07/18 18:09 Vital Signs Reviewed: Yes Eyes: Positive: Conjunctiva Clear ENT: Positive: Uvula midline. Negative: Hearing grossly normal - decreased hearing, Nasal congestion, Nasal drainage, Trismus, Muffled voice, Hoarse voice Neck: Positive: Supple Respiratory: Positive: Lungs clear, Normal breath sounds, No respiratory distress, No accessory muscle use Cardiovascular: Positive: RRR. Negative: Tachycardia, Bradycardia Musculoskeletal: Positive: ROM Intact, No Edema Neurological: Positive: Alert, Other: - grossly non focal exam/ gait not tested Diagnostics - Radiology No standard instances Radiology Interpretation Completed By: Radiologist Summary of Radiographic Findings: age related changes Minor Trauma Course/Dx - Differential Dx/Diagnosis Provider Diagnosis: Falls frequently, Smoker, Urinary urgency Discharge - Sign-Out/Discharge Documenting (check all that apply): Patient Departure All imaging exams completed and their final reports reviewed: Yes - Discharge Plan Condition: Stable Disposition: HOME Patient Education Materials: Fall Prevention for Older Adults (ED), Enlarged Prostate (BPH) (ED), Urinary Urgency and Frequency (DC) Referrals: Hoang Hernandez MD [Primary Care Provider] - 1 Day Additional Instructions: Your urine looked clear Your prostate is enlarged blood work is pending see your MD tomorrow as planned - Billing Disposition and Condition Condition: STABLE Disposition: Home
[2018-11-07 20:06] VITALS: BP 152/74
[2018-11-08 10:36] LABS: Hematocrit 43 % (42-52); Hemoglobin 14.2 g/dl (14.0-18.0); Mean Corpuscular HGB Conc 33 g/dl (31-36); Mean Corpuscular Hemoglobin 31 pg (27-31); Mean Corpuscular Volume 92 fL (80-94); Mean Platelet Volume 8.9 fL (7.4-10.4); Platelet Count 158 10^3/ul (150-450); Red Blood Count 4.64 10^6/ul (4.00-5.40); Red Cell Distribution Width 13 % (10.5-15)
[2018-11-08 11:21] LABS: ABS Basophils 0.1 10^3/ul (0-0.2); ABS Eosinophils 0 10^3/ul (0-0.6); ABS Lymphocytes 1.2 10^3/ul (1.0-4.8); ABS Monocytes 0.8 10^3/ul (0-0.8)
[2018-11-08 11:24] LABS: ABS Basophils 0.12 10^3/ul (0-0.2); ABS Neutrophils 3.96 10^3/ul (1.5-7.7); Lymphocytes % 23 %; Monocytes % 9 %; Neutrophil % 66 %
[2018-11-08 19:41] LABS: Albumin 4.2 g/dL (3.2-5.2); Calcium 8.9 mg/dL (8.6-10.3); Potassium 4.3 mmol/L (3.5-5.0); Total Bilirubin 0.5 mg/dL (0.2-1.0)
[2018-11-08 19:47] LABS: Albumin/Globulin Ratio 1.3 (1-3); BUN/Creatinine Ratio 24.2 (8-20); EGFR African American 86.3 (>60); EGFR Non-African American 71.3 (>60); Globulin 3.2 g/dL (2-4); Total Protein 7.4 g/dL (6.4-8.9)
== END 2018-11-07 20:42 | disposition home or self-care (01) ==
LOC: UCEAST 17:47
DX: R35.0 Frequency of micturition (principal); R39.15 Urgency of urination; R29.6 Repeated falls; I10 Essential (primary) hypertension; F17.210 Nicotine dependence, cigarettes, uncomplicated
CPT/HCPCS: 36415; 70450; 80053; 81003; 85025; 85060; 87086; 99211; G0463